=== PATIENT | female | born 1965 | race Caucasian/White ===

== ENCOUNTER → 2017-07-14 | Emergency (ER) | payer OTHER ==
[~2017-07-14] VITALS: Ht 152.4 cm; Wt 79.4 kg
[~2017-07-14] MED LIST: ACETAMINOOPHEN-1 TAB PO; CIPRO500 MG PO; CORGARD80 MG PO; DITROPAN X10 MG/BOTT PO; DUI500 PO; FIORICET; FIORICET 50-321 EACH PO; FIORINAL 50-321 EACH PO; FLEXERIL10 MG PO; Fioricet Tablet PO; INTESTINEX1 CAP PO; ISORDIL10 MG PO; LEVAQUIN750 MG PO; LEVSIN/SL0.125 MG PO; LYRICA150 MG; LYRICA150 MG PO; LYRICA200 MG PO; MEDROL4 MG PO; MEDROLPACK PO; NADOLOL40 MG; NEURONTIN800 MG PO; NORFLEX100MG PO; PERCOCET 5-3251 EACH PO; PROTONIX40 MG PO; PYRIDIUM100 M1 PO; RESTORIL30 MG; SYNTHROID50 MCG; TENORMIN100 MG PO; TRAM1TAB98 PO; ULTRACET PO
== END | disposition left against medical advice (07) ==
LOC: ER 12:07
DX: Z53.20 Procedure and treatment not carried out because of patient's decision for unspecified reasons (principal)

== ENCOUNTER → 2018-06-29 | Emergency (ER) | payer OTHER ==
[~2018-06-29] VITALS: Ht 152.4 cm; Wt 63.0 kg
== END | disposition left against medical advice (07) ==
LOC: ER 23:22
DX: Z53.20 Procedure and treatment not carried out because of patient's decision for unspecified reasons (principal)